=== PATIENT | male | born 1975 | race African-American/Black ===

== ENCOUNTER 2024-02-05 09:10 | Emergency (ER) | payer OTHER ==
[~2024-02-05] VITALS: Ht 188 cm; Wt 94.5 kg
--- NOTE | 2024-02-05 09:25 | ECG ---
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
[2024-02-05 09:40] LABS: Basophils # (auto) 0 10 ^3/uL (0-0.2); Basophils % (auto) 0.7 % (0.0-2.0); Eosinophils # (auto) 0 10 ^3/uL (0-0.8); Eosinophils % (auto) 0.2 % (0.0-7.0); Hematocrit 45.5 % (41.0-53.0); Hemoglobin 15.7 g/dL (13.5-17.5); Lymphocytes # (auto) 1.5 10 ^3/uL (0.4-5.4); Lymphocytes % (auto) 25.1 % (10.0-50.0); Mean Corpuscular Hemoglobin 28.9 pg (28.0-32.0); Mean Corpuscular Hgb Conc. 34.6 g/dL (32.0-36.0); Mean Corpuscular Volume 83.6 fL (80.0-100.0); Monocytes # (auto) 0.4 10 ^3/uL (0-1.3); Monocytes % (auto) 6.4 % (0.0-12.0); Neutrophils % (auto) 67.6 % (37.0-80.0); Nucleated Red Blood Cells % 0.2 %; Platelet Count (auto) 184 10^3/uL (140-450); Red Blood Cells 5.44 10^6/uL (4.5-5.90); Red Cell Distribution Width 14.9 % (11.8-14.3); White Blood Cell 5.9 10^3/uL (4.4-10.8)
[2024-02-05 10:00] LABS: Albumin 4.5 g/dL (3.2-4.8); Alkaline Phosphatase 73 U/L (46-116); Anion Gap 8 (5-15); Aspartate Aminotransferase 38 U/L (13-40); BUN/Creatinine Ratio 10.5 (10.0-20.0); Bilirubin, Total 0.6 mg/dL (0.2-1.0); Blood Urea Nitrogen 10 mg/dL (9-23); Calcium 9.7 mg/dL (8.7-10.4); Carbon Dioxide 25 mmol/L (20-31); Chloride 105 mmol/L (98-107); Potassium 3.6 mmol/L (3.5-5.1); Sodium 138 mmol/L (136-145); Total Protein 7.4 g/dL (5.7-8.2)
[2024-02-05 10:01] LABS: Alanine Aminotransferase 51 U/L (7-40); Glucose 135 mg/dL (74-106)
[2024-02-05] MEDS: methylPREDNISolone SOD SUCC 40 MG/ML VL IM ONE (10:25)
[2024-02-05 10:29] VITALS: PULSE 102; RESP 20; O2SAT 95
--- NOTE | 2024-02-05 10:48 | DVH ---
EXAM: XY CHEST PORTABLE Indication: cp Technique: Single frontal view of the chest was obtained Comparison: None FINDINGS: Lines and Tubes: None Lungs: No focal consolidation. Pleura: No effusion. No pneumothorax. Cardiomediastinal contours: Unremarkable Bones: No acute osseous abnormality. IMPRESSION: No acute cardiopulmonary disease.
[2024-02-05 11:29] LABS: Rapid Strep A Screen-Throat Negative
--- NOTE | 2024-02-05 12:21 | ED.PDOC ---
History of Present Illness HPI Comments 48-year-old male presents with complaint of nonradiating, sternal chest pain, today. Patient reports on unprovoked and sudden onset of pain, this morning, with no prior history endorsement. Patient informs on taking aspirin prior to arrival to ED in addition to being sick for the past 4 days with sore throat, right ear pain, rhinorrhea, and nasal congestion and is, currently, on antibiotic treatment regimen. Patient reports no additional relevant or pertinent history, such as any recent stressors, strenuous activities, injuries, sick contact, travel, or substance use/exposure. He denies having any shortness of breath, palpitations, nausea, vomiting, fever, chills, or other associated symptoms or modifiers at this time. Chief Complaint: Chest Pain Time Seen by MD: 10:15 Primary Care Provider: RUT Reviewed Notes: Nurses Notes, Medications, Allergies Allergies: Coded Allergies: NO KNOWN ALLERGIES (Unverified , 02/05/24) Home Meds Active Scripts Prednisone (Prednisone) 10 Mg Amanuel, 10 MG PO DAILY for 5 Days, #5 PACK Prov:SHANNAN OLIVERA MD 02/05/24 Information Source: Patient Mode of Arrival: Ambulatory Severity: Moderate Timing: Hours Duration: Since onset Prehospital treatment: None Past Medical History PAST MEDICAL HISTORY: Denies Surgical History: Denies all surgeries Family History Family History: Unknown Social History Smoker: Non-Smoker Alcohol: Denies ETOH Use Drugs: Denies Drug Use Lives In: Home EENTM: reports: ear pain (Right ear), nasal discharge, nose congestion, throat pain Cardiovascular: reports: chest pain Physical Exam General Appearance: No Apparent Distress, Normal HEENT: Other (Erythematous throughout) Neck: Full Range of Motion, Non-Tender, Normal, Normal Inspection Respiratory: Chest Non-Tender, Lungs Clear, No Accessory Muscle Use, No Re spiratory Distress, Normal Breath Sounds Cardiovascular: No Edema, No JVD, No Murmur, No Gallop, Normal Peripheral Pulses, Regular Rate/Rhythm Breast Exam: Deferred Gastrointestinal: No Organomegaly, Non Tender, No Pulsatile Mass, Normal Bowel Sounds, Soft Genitalia: Deferred Pelvic: Deferred Rectal: Deferred Extremities: No calf tenderness, Normal capillary refill, Normal inspection, Normal range of motion, Non-tender, No pedal edema Musculoskeletal : Extremity Location: Chest (Midsternal chest wall) Apperance: Normal, Tenderness (Tenderness to palpation) Neurologic: Alert, counter cutter II-XII nml as Tested, No Motor Deficits, Normal Affect, Normal Mood, No Sensory Deficits Cerebellar Function: Normal Reflexes: Normal Skin: Dry, Normal Color, Warm Lymphatic: No Adenopathy Was a procedure done? Was a procedure done?: No EKG EKG : Pulse Rate (adult): 104 [place]: Normal Cardiac Rhythm: ST Block: None Hypertrophy: None ST: Normal Differential Dx Considerations may include: DE, ACS, PE, PNA, costochondritis, pericarditis, gastritis, gastroenteritis, angina, anxiety, viral syndrome X-Ray, Labs, Meds, VS Vital Signs Date Time Temp Pulse Resp B/P (MAP) Pulse Ox O2 Delivery O2 Flow Rate FiO2 02/05/24 13:40 98.1 103 22 146/92 (110) 95 98.1 02/05/24 12:21 104 02/05/24 10:29 102 20 95 Room Air* 0 21 02/05/24 10:22 98.1 103 22 135/78 (97) 95 98.1 02/05/24 10:00 109 02/05/24 09:24 104 02/05/24 09:10 98.8 113 16 119/89 (99) 96 Lab Test 02/05/24 10:30 02/05/24 10:25 02/05/24 09:25 Range/Units Group A Streptococcus Rapid Negative Troponin I High Sensitivity < 3 L < 3 L </=54 ng/L White Blood Count 5.9 4.4-10.8 10^3/uL Red Blood Count 5.44 4.5-5.90 10^6/uL Hemoglobin 15.7 13.5-17.5 g/dL Hematocrit 45.5 41.0-53.0 % Mean Corpuscular Volume 83.6 80.0-100.0 fL Mean Corpuscular Hemoglobin 28.9 28.0-32.0 pg Mean Corpuscular Hemoglobin Concent 34.6 32.0-36.0 g/dL Red Cell Distribution Width 14.9 H 11.8-14.3 % Platelet Count 184 140-450 10^3/uL Mean Platelet Volume 8.6 6.9-10.8 fL Neutrophils (%) (Auto) 67.6 37.0-80.0 % Lymphocytes (%) (Auto) 25.1 10.0-50.0 % Monocytes (%) (Auto) 6.4 0.0-12.0 % Eosinophils (%) (Auto) 0.2 0.0-7.0 % Basophils (%) (Auto) 0.7 0.0-2.0 % Neutrophils # (Auto) 4.0 1.6-8.6 10 ^3/uL Lymphocytes # (Auto) 1.5 0.4-5.4 10 ^3/uL Monocytes # (Auto) 0.4 0-1.3 10 ^3/uL Eosinophils # (Auto) 0 0-0.8 10 ^3/uL Basophils # (Auto) 0 0-0.2 10 ^3/uL Nucleated Red Blood Cells 0.2 % Sodium Level 138 136-145 mmol/L Potassium Level 3.6 3.5-5.1 mmol/L Chloride Level 105 98-107 mmol/L Carbon Dioxide Level 25 20-31 mmol/L Anion Gap 8 5-15 Blood Urea Nitrogen 10 9-23 mg/dL Creatinine 0.95 0.700-1.30 mg/dL Glomerular Filtration Rate Calc 99 >90 mL/min BUN/Creatinine Ratio 10.5 10.0-20.0 Serum Glucose 135 H 74-106 mg/dL Calcium Level 9.7 8.7-10.4 mg/dL Total Bilirubin 0.6 0.2-1.0 mg/dL Aspartate Amino Transferase (AST) 38 13-40 U/L Alanine Aminotransferase (ALT) 51 H 7-40 U/L Alkaline Phosphatase 73 46-116 U/L Total Protein 7.4 5.7-8.2 g/dL Albumin 4.5 3.2-4.8 g/dL Current Medications Medications (Trade) Dose Ordered Sig/Robert Route Start Time Stop Time Status Last Admin Methylprednisolone Sodium Succinate (Solu Medrol) 40 mg ONCE ONCE IM 02/05/24 10:15 02/05/24 10:16 DC 02/05/24 10:[address] [address] Ph: [phone] DIAGNOSTIC IMAGING Diagnostic Imaging Report : [id number] Signed PATIENT: SOFYJUAN JOSE ACCT: [id number] UNIT: [id number] : 1975 LOC: ER ROOM / BED: / AGE / SEX: 48 / M ADM STATUS: REG ER SERVICE 1013 ORDERING PHYSICIAN: SHANNAN OLIVERA MD PROCEDURE(s): CXRP - CHEST PORTABLE REASON: cp ORDER NUMBER(s): [id number], ACCESSION NUMBER(s): [id number] EXAM: XY CHEST PORTABLE Indication: cp Technique: Single frontal view of the chest was obtained Comparison: None FINDINGS: Lines and Tubes: None Lungs: No focal consolidation. Pleura: No effusion. No pneumothorax. Cardiomediastinal contours: Unremarkable Bones: No acute osseous abnormality. IMPRESSION: No acute cardiopulmonary disease. ATED BY: FELIBERTO AU MD DICTATED DATE/TIME: 02/05/241046 SIGNED BY: FELIBERTO AU MD SIGNED DATE/TIME: 02/05/241046 CC: Time of 1ST Reevaluation: 10:45 Reevaluation 1ST: Unchanged (I explained the course of the disease to the patient. I answered all his questions.) Patient Education/Counseling: Diagnosis, Treatment Family Education/Counseling: No Family Present Additional Information The following tests were ordered, and results were reviewed by me: Labs, XY, EKG I reviewed and agreed with the following test results read by other providers: X-Ray Departure 1 Departure Time of Disposition: 12:50 Impression: Primary Impression: Musculoskeletal chest pain Additional Impression: Viral URI Disposition: HOME / SELF CARE / HOMELESS Condition: Stable e-Prescriptions Prednisone (Prednisone) 10 Mg Amanuel 10 MG PO DAILY for 5 Days, #5 PACK Prov: SHANNAN OLIVERA MD 02/05/24 Critical Care Note Critical Care Time?: No Stability Stability form required: No Heart Score Heart Score: Heart Score Response (Comments) Value History Slightly Suspicious 0 EKG Normal 0 Age 45-64 1 Risk Factors No known risk factors 0 Troponin Normal limit 0 Total 1 I personally scribed for SHANNAN OLIVERA MD ([email or web address]) on 02/05/24 at 12:21. Electronically submitted by Christian Wayne ([email or web address]). I personally scribed for SHANNAN OLIVERA MD ([email or web address]) on 02/05/24 at 12:50. Electronically submitted by Christian Wayne ([email or web address]). SHANNAN OLIVERA MD Feb 05, 2024 12:21
[2024-02-05] MEDS ORDERED: PRED1PAK9 PO (12:51)
[2024-02-05 13:40] VITALS: BP 146/92; PULSE 103; RESP 22; TEMP 98.1; O2SAT 95
--- NOTE | 2024-02-06 11:11 | ECG ---
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
== END 2024-02-05 13:36 | disposition home or self-care (01) ==
LOC: ER 09:10
DX: J06.9 Acute upper respiratory infection, unspecified (principal); B97.89 Other viral agents as the cause of diseases classified elsewhere; R07.89 Other chest pain
CPT/HCPCS: 36415; 71045; 80053; 84484; 85025; 87070; 87880; 93005; 96372; 99285; J2919